=== PATIENT | male | born 1980 | race African-American/Black ===

== ENCOUNTER 2023-10-13 15:17 | Outpatient (CLI) | payer OTHER, SELFPAY ==
[2023-10-14 06:08] LABS: Chlamydia DNA Amplified* NOT DETECTED (No Detected); GC DNA Amplified* NOT DETECTED (No Detected)
== END 2023-10-13 15:18 | disposition home or self-care (01) ==
PROVIDERS: Visit Provider Nurse Practitioner
DX: Z11.3 Encounter for screening for infections with a predominantly sexual mode of transmission (principal)
CPT/HCPCS: 86592; 86703; 87491; 87529; 87591